=== PATIENT | female | born 1980 | race African-American/Black ===

== ENCOUNTER 2018-03-28 15:47 | Outpatient (CLI) | payer OTHER | END 2018-03-28 15:48 | disposition home or self-care (01) | LOC: BICMRI 15:47 | PROVIDERS: ATTEND Surgery | DX: M47.22 Other spondylosis with radiculopathy, cervical region (principal); M48.02 Spinal stenosis, cervical region; M99.81 Other biomechanical lesions of cervical region | CPT/HCPCS: 72141 ==

== ENCOUNTER 2018-04-26 10:03 | Outpatient (CLI) | payer OTHER ==
[2018-04-26] MEDS ORDERED: EPINEPHrine 1 MG/ML AMP ONE (10:45)
[2018-04-26] MEDS ORDERED: Iopamidol 300 61% 50 ML VIAL FS ONE (10:45)
[2018-04-26] MEDS ORDERED: Lidocaine 1% PF 10 ML AMP ONE (10:45)
[2018-04-26] MEDS ORDERED: Gadobenate Dimeglumine 529 MG/1 ML (20ML VIAL) ONE (10:45)
--- NOTE | 2018-04-26 12:32 | RAD ---
RIGHT SHOULDER ATHROGRAM: History: Labral tear. Comparison: None. FINDINGS: Patient was brought to the fluoroscopy suite. All questions were answered. The patient's right shoulder was prepped and draped in normal sterile fashion. Informed consent was obtained. Time out was performed. Lidocaine was administered superficially into the soft tissues. Using a 22 gauge spinal needle, the right shoulder joint was accessed. 10 ml of contrast was instille d into the shoulder glenohumeral joint. Patient tolerated the procedure well without complication. IMPRESSION: Technically successful fluoroscopic guided arthrogram for MRI. MRI pending. Fluoro time: 1.2 minutes On the dyeing machine tender radiograph there appears to be calcific tendinosis of the rotator cuff as well as the po ssible bodies in the axillary pouch. POS: MYLENE
--- NOTE | 2018-04-26 13:43 | MRI ---
MRI RIGHT SHOULDER WITH CONTRAST: Date: 04/26/18 HISTORY: S43.431, labrum tear. FINDINGS: Biceps Tendon: The extraarticular biceps tendon is normal. Mild intraarticular tendinosis. Labrum: There is tearing throughout the superior and anterior labrum. There is also tear at the posterior and posterior inferior labrum with free edge blunting. Rotator Cuff: There is moderate bursal surface fraying of the supraspinatus tendon. No full thickness perforation. There is calcific tendinosis of the infraspinatus tendon with an intratendinous ovoid signal void will suring 4.0 x 3.0 mm. Bones: There is sclerosis of the anterior inferior glenoid with subchondral cyst formation. Muscles: The muscle signal and bulk is normal. 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 Normal glenoid version. IMPRESSION: 1. Extensive tearing throughout the superior, anterior, and posterior labrum. There is blunting of t he free edge of the posterior labrum. There is chondrolabral separation of the anterior labrum with p eriosteal stripping. There is also reactive subchondral cyst formation of the anterior glenoid rim. 2. Free body within the axillary pouch, inferior glenohumeral ligament, measuring 6.0 x 3.0 mm. 3. Calcific tendinosis of the infraspinatus tendon measuring 4.0 x 2.0 mm within the bursal surface of the tendon. 4. 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 POS: ANDERSON
== END 2018-04-26 10:04 | disposition home or self-care (01) ==
LOC: RAD 10:03
PROVIDERS: ATTEND Orthopaedic Surgery
DX: S43.431A Superior glenoid labrum lesion of right shoulder, initial encounter (principal); M25.811 Other specified joint disorders, right shoulder; M75.91 Shoulder lesion, unspecified, right shoulder
CPT/HCPCS: 23350; A9579; J0171; J7050

== ENCOUNTER 2019-01-24 06:54 | Outpatient (CLI) | payer OTHER ==
--- NOTE | 2019-01-24 07:50 | ULT ---
RIGHT UPPER QUADRANT ABDOMINAL ULTRASOUND: Date: 01/24/19 HISTORY: Right upper quadrant abdominal pain. TECHNIQUE: Multiplanar Smith scale and color Doppler images were obtained in a right upper quadrant abdominal ult rasound. FINDINGS: There is an anechoic cyst in the liver measuring 1.4 cm in greatest dimension. No other liver lesions are seen and there is no intrahepatic biliary dilatation. The gallbladder is normal, without stones, sludge, gallbladder wall thickening, or pericholecystic fl uid. The common bile duct is upper limits of normal in size measuring 7.0 mm. The visualized portions of the pancreas are unremarkable. The right kidney is normal in echogenicity without hydronephrosis or calculus and measures 10.1 cm in length. IMPRESSION: Hepatic cyst. POS: MYLENE
== END 2019-01-24 06:55 | disposition home or self-care (01) ==
LOC: BICULT 06:54
PROVIDERS: ATTEND Family Medicine
DX: R10.11 Right upper quadrant pain (principal); K76.89 Other specified diseases of liver
CPT/HCPCS: 76705

== ENCOUNTER 2019-02-12 13:06 | Outpatient (CLI) | payer OTHER ==
--- NOTE | 2019-02-12 14:21 | MMO ---
Bilateral MAMMO Bilat Screen DDI. CLINICAL HISTORY: Patient is 39 years old and is seen for screening. The patient has the following family history of breast cancer: maternal grandmother, at age 42. The patient has no personal history of cancer. VIEWS: The views performed were: bilateral craniocaudal and bilateral mediolateral oblique. FILMS COMPARED: The present examination has been compared to a prior imaging study performed at [facility] on 01/21/2004. This study has been interpreted with the assistance of computer-aided detection. MAMMOGRAM FINDINGS: There are scattered fibroglandular densities. There is a mass seen in the upper-outer region of the right breast. In the left breast, there are no suspicious masses, calcifications or areas of architectural distortion. IMPRESSION: MASS IN THE RIGHT BREAST REQUIRES ADDITIONAL EVALUATION. ADDITIONAL IMAGING. ACR BI-RADS Category 0 - Incomplete: Need additional imaging evaluation. [facility] will notify the patient of the need for additional imaging services. MAMMOGRAPHY NOTE: 1. A negative mammogram report should not delay a biopsy if a dominant of clinically suspicious mass is present. 2. Approximately 10% to 15% of breast cancers are not detected by mammography. 3. Adenosis and dense breasts may obscure an underlying neoplasm.
== END 2019-02-12 13:07 | disposition home or self-care (01) ==
LOC: BICMAMMO 13:06
PROVIDERS: ATTEND Family Medicine
DX: Z12.31 Encounter for screening mammogram for malignant neoplasm of breast (principal); N63.10 Unspecified lump in the right breast, unspecified quadrant; Z80.3 Family history of malignant neoplasm of breast
CPT/HCPCS: 77067

== ENCOUNTER 2019-02-21 12:22 | Outpatient (CLI) | payer OTHER ==
--- NOTE | 2019-02-21 14:01 | MMO ---
Right Breast MAMMO Unilat Diag DDI RT+REGINALD. CLINICAL HISTORY: Patient is 39 years old and is seen for additional evaluation requested from prior study. The patient has the following family history of breast cancer: maternal grandmother, at age 42. The patient has no personal history of cancer. VIEWS: The views performed were: right craniocaudal spot compression; right mediolateral oblique spot compression; and right mediolateral. FILMS COMPARED: The present examination has been compared to prior imaging studies performed at [facility] on 01/21/2004, 02/12/2019 and 02/21/2019. MAMMOGRAM FINDINGS: There are scattered fibroglandular densities. Additional views were performed. Right Breast nodule at 10:00 persists and is solid on US IMPRESSION: FINDING IN THE RIGHT BREAST IS SUSPICIOUS. AN ULTRASOUND-GUIDED BREAST BIOPSY IS RECOMMENDED. THE RESULTS OF THIS EXAM WERE SENT TO THE PATIENT. ACR BI-RADS Category 4 - Suspicious abnormality - biopsy should be considered MAMMOGRAPHY NOTE: 1. A negative mammogram report should not delay a biopsy if a dominant of clinically suspicious mass is present. 2. Approximately 10% to 15% of breast cancers are not detected by mammography. 3. Adenosis and dense breasts may obscure an underlying neoplasm.
--- NOTE | 2019-02-21 15:16 | ULT ---
RIGHT BREAST ULTRASOUND: Date: 02/21/19 HISTORY: Abnormal mammogram. FINDINGS: Comparison made to mammograms of 02/21/19 and 02/12/19. Sonographic evaluation of the right upper outer breast demonstrates a nonshadowing solid mass measuri ng about 11.0 x 10.0 x 9.0 mm, corresponding to the mammographic finding. IMPRESSION: BIRADS Category 4 - Suspicious abnormality. Ultrasound guided biopsy is recommended. POS: MYLENE
== END 2019-02-21 12:23 | disposition home or self-care (01) ==
LOC: BICMAMMO 12:22
PROVIDERS: ATTEND Family Medicine
DX: N63.10 Unspecified lump in the right breast, unspecified quadrant (principal); Z80.3 Family history of malignant neoplasm of breast
CPT/HCPCS: G0279

== ENCOUNTER → 2019-03-01 | Day surgery (SDC) | payer OTHER ==
--- NOTE | 2019-03-01 13:43 | MMO ---
Right Breast MAMMO Unilat Diag DDI RT. CLINICAL HISTORY: Patient is 39 years old and is seen for diagnostic exam. The patient has the following family history of breast cancer: maternal grandmother, at age 42. The patient has no personal history of cancer. VIEWS: The views performed were: right craniocaudal and right mediolateral oblique. FILMS COMPARED: The present examination has been compared to prior imaging studies performed at [facility] on 01/21/2004, 02/12/2019 and 02/21/2019. MAMMOGRAM FINDINGS: There are scattered fibroglandular densities. Follow-up examination was performed for the suspicious finding - 4 seen on 02/21/2019. On the present examination, there is an oval mass with associated biopsy clip in the right breast at 10 o'clock. IMPRESSION: MASS IN THE RIGHT BREAST IS SUSPICIOUS. STATUS POST ULTRASOUND GUIDED RIGHT BREAST BIOPSY FOR RIGHT BREAST 10:00 MASS. THE RESULTS OF THIS EXAM WERE SENT TO THE PATIENT. ACR BI-RADS Category 4 - Suspicious abnormality - biopsy should be considered MAMMOGRAPHY NOTE: 1. A negative mammogram report should not delay a biopsy if a dominant of clinically suspicious mass is present. 2. Approximately 10% to 15% of breast cancers are not detected by mammography. 3. Adenosis and dense breasts may obscure an underlying neoplasm.
--- NOTE | 2019-03-01 14:13 | ULT ---
ULTRASOUND GUIDED RIGHT BREAST MASS BIOPSY: INDICATION: Suspicious right breast mass within the right breast 10 o'clock position, 4 cm from the nipple. TECHNIQUE: Informed consent was obtained. Preprocedure ultrasound was performed confirming the right breast mas s in the 10 o'clock position. A timeout was performed. The site was prepped and draped in the usual sterile fashion. Buffered 1% Lidocaine was administered to the overlying subcutaneous tissue. A sm all dermatotomy was made. A 14-gauge core biopsy needle was guided down to the lesion. Four separat e core samples were obtained of the lesion. A small biopsy clip was placed within the lesion followi ng the procedure. Pressure was held at the biopsy site until hemostasis was obtained. The patient w as escorted to the mammography suite for a followup right breast post clip mammogram. IMPRESSION: BIRADS category 4 - suspicious abnormality. Status post ultrasound-guided core biopsy. Awaiting path ology results. POS: OFF
== END ==
LOC: BICULT 12:24
PROVIDERS: ATTEND Family Medicine
PROC: 0HBT3ZX Excision of Right Breast, Percutaneous Approach, Diagnostic (ICD-10-PCS; principal; 2019-03-01)
DX: D24.1 Benign neoplasm of right breast (principal)
CPT/HCPCS: 19083; 88305

== ENCOUNTER 2021-03-30 12:59 | Outpatient (CLI) | payer OTHER | END 2021-03-30 13:00 | disposition home or self-care (01) | LOC: BICULT 12:59 | PROVIDERS: ATTEND Nurse Practitioner Family | DX: M54.2 Cervicalgia (principal); N93.8 Other specified abnormal uterine and vaginal bleeding; G56.91 Unspecified mononeuropathy of right upper limb; Z87.39 Personal history of other diseases of the musculoskeletal system and connective tissue; M47.812 Spondylosis without myelopathy or radiculopathy, cervical region; R93.89 Abnormal findings on diagnostic imaging of other specified body structures | CPT/HCPCS: 72040; 76856 ==

== ENCOUNTER 2022-04-01 09:33 | Outpatient (CLI) | payer BC ==
[2022-04-01] MEDS ORDERED: Gadobenate Dimeglumine 529 MG/ML (10ML VIAL) ONE (10:38)
[2022-04-01] MEDS ORDERED: EPINEPHrine 1 MG/ML VIAL ONE (10:38)
[2022-04-01] MEDS ORDERED: Iopamidol 300 61% 30 ML VIAL ONE (10:38)
[2022-04-01] MEDS ORDERED: Lidocaine 1% PF 5 ML VIAL ONE (10:38)
== END 2022-04-01 09:34 | disposition home or self-care (01) ==
LOC: RAD 09:33
PROVIDERS: ATTEND Orthopaedic Surgery
DX: M75.101 Unspecified rotator cuff tear or rupture of right shoulder, not specified as traumatic (principal); S43.401A Unspecified sprain of right shoulder joint, initial encounter; M19.011 Primary osteoarthritis, right shoulder; M25.711 Osteophyte, right shoulder
CPT/HCPCS: 23350; A9577; J0171; Q9967

== ENCOUNTER 2023-07-05 15:05 | Outpatient (CLI) | payer BC ==
[2023-07-05 16:41] LABS: #Basophils 0.1 10x3/uL (0.0-0.2); #Eosinphils 0.2 10x3/uL (0.0-0.5); #Monocytes 0.7 10x3/uL (0.0-1.1); #Neutrophils 5.6 10x3/uL (1.5-8.4); %Basophils 0.6 % (0.0-2.0); %Eosinophils 1.9 % (0.0-6.0); %Lymphocytes 27.7 % (18.0-47.0); %Neutrophils 61.6 % (40.0-75.0); Hematocrit 39.2 % (34.9-44.5); Hemoglobin 13.4 g/dL (12.0-15.5); Mean Corpuscular HGB CONC 34.2 g/dL (32.0-36.0); Mean Corpuscular Hemoglobin 29.5 pg (27.0-33.0); Mean Corpuscular Volume 86.3 fl (81.6-98.3); Platelet Count 330 10x3/uL (150-450); RBC Distribution Width 13.5 % (11.5-14.5); Red Blood Cell (RBC) Count 4.54 10x6/uL (3.90-5.03); White Blood Cell (WBC) Count 9.1 10x3/uL (3.5-10.5)
[2023-07-05 16:45] LABS: Anion Gap 13 mmol/L (10-20); BUN (Urea Nitrogen) 10 mg/dL (7.0-18.7); Calc. Creatinine Clearance 0 mL/min (70-130); Calcium 9.1 mg/dL (7.8-10.44); Carbon Dioxide 23 mmol/L (22-29); Chloride 110 mmol/L (98-107); Estimated GFR 88; Glucose 85 mg/dL (70-105); Potassium 3.7 mmol/L (3.5-5.1); Sodium 142 mmol/L (136-145)
== END 2023-07-05 15:06 | disposition home or self-care (01) ==
LOC: LABBT 15:05
PROVIDERS: ATTEND Specialist
DX: Z01.812 Encounter for preprocedural laboratory examination (principal); K60.2 Anal fissure, unspecified
CPT/HCPCS: 80048; 85025

== ENCOUNTER 2023-07-13 05:53 | Day surgery (SDC) | payer BC ==
[2023-07-05 15:27] VITALS: BMI 31.9
[2023-07-13] MEDS ORDERED: Ketorolac Tromethamine 30 MG/ML VIAL ONE (06:00)
[2023-07-13] MEDS ORDERED: Acetaminophen 500 MG TAB ONE (06:00)
[2023-07-13] MEDS ORDERED: Bupivacaine 0.25% HCL 30 ML VIAL ONE (06:52)
[2023-07-13] MEDS ORDERED: Lidocaine 2% 6 ML (Jelly) SYR ONE (06:52)
[2023-07-13] MEDS ORDERED: EPINEPHrine 1 MG/ML AMP ONE (06:52)
[2023-07-13] MEDS ORDERED: fentaNYL PF 100 MCG/2 ML SYRINGE ONE (06:56)
[2023-07-13] MEDS ORDERED: CEFAZOLIN 2 GM VIAL ONE (07:10)
[2023-07-13] MEDS ORDERED: Sodium Chloride 0.9% 100 ML ONE (07:10)
[2023-07-13] MEDS ORDERED: Midazolam HCl 2 mg/2 ml Vial ONE (07:34)
[2023-07-13] MEDS ORDERED: Lidocaine 1% PF 5 ML VIAL ONE (07:49)
[2023-07-13] MEDS ORDERED: Ondansetron PF 4 MG/2 ML Vial ONE (07:49)
[2023-07-13] MEDS ORDERED: PROPOFOL 200 MG/20 ML VIAL ONE (07:49)
[2023-07-13] MEDS ORDERED: Dexamethasone 20 MG/5 ML VIAL ONE (07:49)
[2023-07-13] MEDS ORDERED: HYDROcodone/Acetaminophen 5/325 mg Tablet ONE (10:08)
== END 2023-07-13 10:20 | disposition home or self-care (01) ==
LOC: SDC 05:53
PROVIDERS: ATTEND Specialist
PROC: 0D8R0ZZ Division of Anal Sphincter, Open Approach (ICD-10-PCS; principal; 2023-07-13)
PROC: 06BY0ZC Excision of Hemorrhoidal Plexus, Open Approach (ICD-10-PCS; principal; 2023-07-13)
DX: K60.2 Anal fissure, unspecified (principal); K64.5 Perianal venous thrombosis; F17.210 Nicotine dependence, cigarettes, uncomplicated
CPT/HCPCS: J0171; J1100; J1885; J2250; J2405; J2704; J3490; S0020

== ENCOUNTER 2023-12-18 15:44 | Outpatient (CLI) | payer BC | END 2023-12-18 15:45 | disposition home or self-care (01) | LOC: BICMAMMO 15:44 | PROVIDERS: ATTEND Student in an Organized Health Care Education/Training Program | DX: Z12.31 Encounter for screening mammogram for malignant neoplasm of breast (principal); Z80.3 Family history of malignant neoplasm of breast | CPT/HCPCS: 77063; 77067 ==